=== PATIENT | female | born 1970 | race Caucasian/White ===

== ENCOUNTER 2018-08-03 05:17 | Day surgery (SDC) | payer BC, OTHER ==
[2018-08-03] MEDS ORDERED: fentaNYL 100 MCG/2 ML SDV IV ONE ×3 (05:18→06:25)
[2018-08-03] MEDS ORDERED: Midazolam 1 MG/ML 2 ML SDV IV ONE ×3 (05:18→06:26)
[2018-08-03] MEDS ORDERED: Midazolam 1 MG/ML 2 ML SDV ONE (05:50)
[2018-08-03] MEDS ORDERED: fentaNYL 100 MCG/2 ML SDV ONE (05:51)
[2018-08-03] MEDS ORDERED: Dextrose 5%-0.45% NaCl 1,000 ML IV SCH ×2 (06:30→08:00)
[2018-08-03] MEDS ORDERED: Sodium Chloride 0.9% 10 ML Syringe FLUSH PRN (08:00)
[2018-08-03 09:59] VITALS: BP 116/79
--- NOTE | 2018-08-03 11:45 | OR ---
DATE: 08/03/2018 PROCEDURE PERFORMED: Esophagogastroduodenoscopy and multiple pinch biopsies. INSTRUMENT USED: [id number]-[id number] Olympus video panendoscope. PREMEDICATIONS: No oral or topical anesthesia used. Fentanyl 100 mcg intravenous, Versed 2 mg intravenous. Nasal O2 cannula. The procedure was done under pulse oximetry, BP recording, and cardiac exercise specialist. INDICATION: The patient with unexplained iron deficiency anemia. Esophagogastroduodenoscopy was performed for detection of any active erosive lesions, Stevenson esophagus and/or malignancy also under consideration, H. pylori status to be determined, small bowel biopsies to be obtained for celiac disease if indicated, endoscopic hemostasis therapy if needed. DESCRIPTION OF PROCEDURE: The scope was passed with ease. Adequate visualization of the esophagus was made from proximal to distal areas. No upper esophageal lesions identified. No distal esophageal stricture. No uphill or downhill esophageal varices. No Estela-Granados tear. No evidence of erosive esophagitis by Harleton criteria. No esophageal polyp or tumor mass identified. A small sliding hiatal hernia was noted. Gastric fundus examination by retroflexion showed no malignant lesions. No proximal gastric varices noted. No gastric ulcer, malignant mass, or vascular ectasia identified. Duodenal bulb showed no ulcer. Visualized second part of the duodenum was unremarkable. Multiple pinch biopsies, 4 in number, were taken from different areas of the second part of the duodenum and tissues were also obtained from the duodenal bulb at 9 and 12 o'clock positions and sent for any histopathologic evidence of celiac disease. Multiple pinch biopsies were also taken from the gastric antrum and proximal body and sent for PyloriTek test for H. pylori and histopathology. No bleeding was noted from any of the visualized areas at the completion of the examination. Photographs were taken of the duodenal bulb, gastric antrum, fundus, and distal esophagus. IMPRESSION: Small sliding hiatal hernia. The patient tolerated the procedure well. [facility] /[id number]
--- NOTE | 2018-08-03 15:19 | LETTER ---
08/03/2018 Kingsley Wisdom MD [facility] [address], [place] [address] RE: CLINT CLEMENT : [address] Wisdom: Ms. Clint Clement had esophagogastroduodenoscopy done this morning and she tolerated the procedure well. I herewith send a copy of the endoscopy note and photographs for your review. Thank you. Sincerely, [facility] /[id number]
== END 2018-08-03 08:14 | disposition home or self-care (01) ==
LOC: DL.ENDO 05:17
PROVIDERS: ATTEND Internal Medicine Gastroenterology
DX: D50.9 Iron deficiency anemia, unspecified (principal); K44.9 Diaphragmatic hernia without obstruction or gangrene; I10 Essential (primary) hypertension; E11.9 Type 2 diabetes mellitus without complications; E78.00 Pure hypercholesterolemia, unspecified; E53.8 Deficiency of other specified B group vitamins; E66.09 Other obesity due to excess calories; Z68.39 Body mass index [BMI] 39.0-39.9, adult
CPT/HCPCS: 43239; 87077; J2250; J3010; J7042

== ENCOUNTER 2018-08-05 05:51 | Day surgery (SDC) | payer BC, OTHER ==
[2018-08-05] MEDS ORDERED: fentaNYL 100 MCG/2 ML SDV IV ONE ×4 (05:52→07:09)
[2018-08-05] MEDS ORDERED: Midazolam 1 MG/ML 2 ML SDV IV ONE ×7 (05:52→07:07)
[2018-08-05] MEDS ORDERED: Midazolam 1 MG/ML 2 ML SDV ONE (06:11)
[2018-08-05] MEDS ORDERED: fentaNYL 100 MCG/2 ML SDV ONE (06:11)
[2018-08-05] MEDS ORDERED: Sodium Chloride 0.9% 10 ML Syringe FLUSH PRN (06:57)
[2018-08-05] MEDS ORDERED: Dextrose 5%-0.45% NaCl 1,000 ML IV SCH (07:00)
[2018-08-05 10:59] VITALS: BP 138/83
--- NOTE | 2018-08-05 11:30 | OR ---
DATE: 08/05/2018 PROCEDURE PERFORMED: Total colonoscopy, narrowband imaging, and cold snare polypectomy. INSTRUMENT USED: [id number] Olympus video colonoscope. PREMEDICATIONS: Fentanyl 125 mcg intravenous, Versed 4 mg intravenous. Nasal O2 cannula. The procedure was done under pulse oximetry, BP recording, and senior business architect. INDICATION: The patient with unexplained iron deficiency anemia. Colonoscopic examination is done for detection of any polypoid lesions and removal, endoscopic hemostasis therapy if needed. DESCRIPTION OF PROCEDURE: Initial rectal exam was unremarkable. Rigid anoscopy was normal. The colonoscope was passed with ease. In the distal rectal area, a 3 mm sized benign-appearing polyp was noted. NBI views were obtained, cold snare polypectomy was done, the tissue was retrieved and sent for histopathology. A few scattered diverticula were noted in the distal left colon. The colonoscope was passed with ease up to the ileocecal area. Photographs were taken of the normal-appearing cecum, identified by landmarks of appendiceal orifice and double-bulged ileocecal folds. No bleeding was noted from any of the visualized areas at the commencement of the examination. The bowel preparation was found to be adequate, [place] scale 3. No stricture. No vascular ectasia. No large isolated ulcerations seen. No evidence of diffuse inflammatory bowel disease in the form of friability, contact bleeding, or ulcerations. Probing the proximal sides of folds and flexures using adequate distention and clearing up the stool material, withdrawal of the scope was made, cecum to rectum, time over 6 minutes. No bleeding was noted from any of the visualized areas at the completion of the examination. IMPRESSION: 1. Diminutive rectal polyp. 2. Diverticulosis. The patient tolerated the procedure well. [facility] /[id number]
--- NOTE | 2018-08-05 13:01 | LETTER ---
08/05/2018 Kingsley Wisdom MD [facility] [address] [place] [address], [place] [address] RE: CLINT CLEMENT : [address] Wisdom: Ms. Clint Clement had colonoscopic examination done this morning and she tolerated the procedure well. I herewith send a copy of the endoscopy note and photographs for your review. Thank you. Sincerely, [facility] /[id number]
== END 2018-08-05 09:15 | disposition home or self-care (01) ==
LOC: DL.ENDO 05:51
PROVIDERS: ATTEND Internal Medicine Gastroenterology
DX: K62.1 Rectal polyp (principal); K57.30 Diverticulosis of large intestine without perforation or abscess without bleeding; D50.9 Iron deficiency anemia, unspecified; I10 Essential (primary) hypertension; E11.9 Type 2 diabetes mellitus without complications; E78.00 Pure hypercholesterolemia, unspecified; E53.8 Deficiency of other specified B group vitamins; E66.09 Other obesity due to excess calories; Z68.39 Body mass index [BMI] 39.0-39.9, adult
CPT/HCPCS: 45385; J2250; J3010; J7042